=== PATIENT | female | born 1990 | race Two or more races ===

== ENCOUNTER 2021-08-21 15:30 | Inpatient (IN) | payer OTHER ==
[~2021-08-21] VITALS: Ht 162.6 cm; Wt 71.2 kg
[2021-09-10] MEDS ORDERED: PRENATAL TABLE1 EAC3 PO (08:21)
== END 2021-09-13 14:58 | disposition home or self-care (01) | DRG 788 ==
LOC: LDR 08-28 15:30 → OB/GYN 09-10 07:17 → LDR 09-10 07:17 → OB/GYN 09-10 21:01
PROVIDERS: ADMIT Obstetrics & Gynecology; ATTEND Obstetrics & Gynecology
PROC: 4A1HXCZ Monitoring of Products of Conception, Cardiac Rate, External Approach (ICD-10-PCS; 2021-09-10)
PROC: 10D00Z1 Extraction of Products of Conception, Low, Open Approach (ICD-10-PCS; principal; 2021-09-10 18:00)
DX: O62.1 Secondary uterine inertia (principal); O76 Abnormality in fetal heart rate and rhythm complicating labor and delivery; Z3A.39 39 weeks gestation of pregnancy; Z37.0 Single live birth; Z20.822 Contact with and (suspected) exposure to COVID-19

== ENCOUNTER 2021-09-16 11:46 | Inpatient (IN) | payer OTHER ==
[~2021-09-16] VITALS: Ht 162.6 cm; Wt 71.2 kg
[~2021-09-16 11:46] MED LIST: PRENATAL TABLE1 EAC3 PO
== END 2021-10-04 15:43 | disposition home or self-care (01) | DRG 776 ==
LOC: ER 11:46 → OB/GYN 09-17 00:39
PROVIDERS: ADMIT Obstetrics & Gynecology; ATTEND Obstetrics & Gynecology
PROC: 8E0ZXY6 Isolation (ICD-10-PCS; principal; 2021-09-17)
PROC: B54PZZZ Ultrasonography of Bilateral Upper Extremity Veins (ICD-10-PCS; 2021-09-22)
PROC: BW21Y0Z Computerized Tomography (CT Scan) of Abdomen and Pelvis using Other Contrast, Unenhanced and Enhanced (ICD-10-PCS; 2021-09-23)
PROC: B246ZZZ Ultrasonography of Right and Left Heart (ICD-10-PCS; 2021-09-23)
PROC: 0W9F30Z Drainage of Abdominal Wall with Drainage Device, Percutaneous Approach (ICD-10-PCS; 2021-09-26)
PROC: 05HB33Z Insertion of Infusion Device into Right Basilic Vein, Percutaneous Approach (ICD-10-PCS; 2021-09-27)
PROC: BW21ZZZ Computerized Tomography (CT Scan) of Abdomen and Pelvis (ICD-10-PCS; 2021-10-02)
DX: O86.09 Infection of obstetric surgical wound, other surgical site (principal); K91.31 Postprocedural partial intestinal obstruction; O99.63 Diseases of the digestive system complicating the puerperium; B95.62 Methicillin resistant Staphylococcus aureus infection as the cause of diseases classified elsewhere; B96.7 Clostridium perfringens [C. perfringens] as the cause of diseases classified elsewhere; B96.89 Other specified bacterial agents as the cause of diseases classified elsewhere; Z20.822 Contact with and (suspected) exposure to COVID-19; K59.09 Other constipation; D50.0 Iron deficiency anemia secondary to blood loss (chronic); D75.838 Other thrombocytosis